=== PATIENT | male | born 1990 | race Caucasian/White ===

== ENCOUNTER 2021-08-14 12:54 | Outpatient (CLI) | payer BC, SELFPAY ==
--- NOTE | 2021-08-14 12:45 | RT.EKG_ITS ---
APPROVED REPORT Exam: Resting ECG Reason for Exam: Chest Pain Patient Location: O HR:79 bpm ECG Measurements Heart Rate 79 AXIS FL 154 P 31 QRSd 85 QRS 72 QT 347 T 58 QTc 397 Conclusion Sinus rhythm...normal P axis, V-rate 60- 99 ST elev, probable normal early repol pattern...ST elevation, age<55 Normal Electrocardiogram
== END 2021-08-14 12:55 | disposition home or self-care (01) ==
LOC: DI.CM 12:54
PROVIDERS: Visit Provider Physician Assistant
DX: R07.89 Other chest pain (principal); I49.49 Other premature depolarization
CPT/HCPCS: 93010

== ENCOUNTER 2021-08-14 19:36 | Outpatient (REF) | payer BC, SELFPAY ==
[2021-08-16 11:43] LABS: COVID-19 RT-PCR UVMMC Result Negative (Negative)
== END 2021-08-14 19:37 | disposition home or self-care (01) ==
LOC: LBN 19:36
PROVIDERS: Visit Provider Physician Assistant
DX: Z20.822 Contact with and (suspected) exposure to COVID-19 (principal)
CPT/HCPCS: U0003